=== PATIENT | female | born 1990 | race Caucasian/White ===

== ENCOUNTER 2021-04-20 05:32 | Emergency (ER) | payer OTHER, SELFPAY ==
[2021-04-20 05:35] VITALS: BP 125/87; PULSE 118; RESP 19; TEMP 36.8; O2SAT 98; BMI 32.5
--- NOTE | 2021-04-20 05:58 | [facility].EDGENADL ---
ED Disposition Clinical Impression: Cervical muscle strain Qualifiers: Encounter type: initial encounter Qualified Code(s): S16.1XXA - Strain of muscle, fascia and tendon at neck level, initial encounter Disposition: Home, Self-Care Condition on Discharge: Good Instructions: DI for Low Back Pain Additional Instructions: Please take naproxen and methocarbamol at home, you can take Voltaren gel (diclofenac gel) as well for pain and apply to your neck. Return to the ED for any new or worsening symptoms. Prescriptions: methocarbamoL [Methocarbamol 500mg Tablet] 1,000 mg PO TID #24 tab Transmission Status: Received by [id number] Naproxen [Naproxen 500mg tab] 1,000 mg PO TID #24 tab Transmission Status: Received by [id number] Referrals: Eliza Leahy [Primary Care Provider] - - Critical Care Critical Care Time: No Attestation: On 04/20/21, the high probability of a clinically significant, sudden or life threatening deterioration of the following system(s) required my full and direct attention, intervention and personal management. The time I documented below is in addition to time spent performing reported procedures but includes the following listed in this critical care notation. Medical Decision Making - Medical Records Medical records reviewed: Yes: I reviewed the patient's medical records. - Jarad Inquiry Pt receiving controlled substance: No Vital Signs: 04/20/21 05:35 Temperature 98.2 F Temperature Source Oral Pulse Rate [Right Radial] 118 H Respiratory Rate 19 Blood Pressure [Right Arm] 125/87 Blood Pressure Mean [Right Arm] 99 Blood Pressure Source [Right Arm] Automatic Cuff Blood Pressure Position [Right Arm] Sitting 02 Sat by Pulse Oximetry 98 Oxygen Delivery Method Room Air Orders (Tests/Meds): ED MEDICATIONS Discontinued Medications Generic Name Dose Route Start Last Admin Trade Name Freq PRN Reason Stop Dose Admin Dexamethasone Sodium Phosphate 8 mg 04/20/21 05:57 04/20/21 06:01 Dexamethasone 4mg/Ml 5ml Mdv IM 04/20/21 05:58 8 mg ONCE ONE Administration Ketorolac Tromethamine 30 mg 04/20/21 05:52 04/20/21 06:01 Ketorolac 30mg/Ml Vial IM 04/20/21 05:53 30 mg ONCE ONE Administration Lorazepam 1 mg 04/20/21 05:51 04/20/21 06:00 Lorazepam 1mg Tablet PO 04/20/21 05:52 1 mg ONCE ONE Administration Medical Decision Narrative: Patient is a 31-year-old female presents the ED today for further evaluation of right-sided neck pain. Patient is well-appearing on initial evaluation, appears to be in pain holding the right side of her neck, but is in no other acute distress. Initial vital show mild tachycardia with heart rate of 118. We will further evaluate with medication management with 2 mg of oral Ativan, 30 mg of IM Toradol, 8 mg of IM Decadron. Patient's pain is not frankly radicular, more likely musculoskeletal on exam, have low concern for vascular injury such as vertebral artery dissection, and very low concern for fracture or cervical spine injury. Patient is reported symptomatic improvement, still having some tingling of her fingertips, but no weakness in the upper extremities. We will further treat with naproxen, methocarbamol, diclofenac gel outpatient, patient is verbalized understanding of this plan, I have stressed the importance of her return follow-up with PCP, and return to the ED with any new or worsening symptoms and she has verbalized understanding of this plan. General Adult HPI - General Chief complaint: Back Pain/Injury Stated complaint: Neck,Head and right arm pain Time Seen by Provider: 04/20/21 05:35 Mode of Arrival: Ambulatory Limitations: No Limitations Description of Symptoms (Recalled from ER Triage Doc. by RN): PT REPORTS SHE WOKE UP @ 0400 WITH RIGHT SIDED NECK AND HEAD PAIN THAT RADIATES TO SHOULDER, THAT PATIENT DESCRIBES SHARP/SHOOTING 11/13. PT REPORTS SHE TOOK ASA 650 AT THAT TIME WITH N
[2021-04-20 06:54] VITALS: BP 120/51; PULSE 83; RESP 18; TEMP 36.6; O2SAT 100
== END 2021-04-20 07:03 | disposition home or self-care (01) ==
PROVIDERS: Emergency Provider Student in an Organized Health Care Education/Training Program; PCP Nurse Practitioner Family
DX: S16.1XXA Strain of muscle, fascia and tendon at neck level, initial encounter (principal)
CPT/HCPCS: 96372; 99281